=== PATIENT | male | born 1990 | race Caucasian/White ===

== ENCOUNTER 2017-10-18 11:34 | Emergency (ER) | payer OTHER ==
[2017-10-18] MEDS ORDERED: Sodium Chloride 0.9% 1,000 ML IV SCH (12:45)
[2017-10-18 13:32] LABS: BASO % 0.3 % (0.0-2.0); EOS % 0.1 % (0.0-4.0); HEMOGLOBIN 14.5 g/dL (12.0-18.0); LYMPH # 0.6 K/uL (1.0-4.3); MEAN CELL VOLUME 66.7 fl (80.0-94.0); MEAN CORPUSCULAR HEMOGLOBIN 21.7 pg (27.0-31.0); MEAN CORPUSCULAR HGB CONC 32.5 g/dL (33.0-37.0); MEAN PLATELET VOLUME 7.6 fl (7.2-11.7); MONO # 0.7 K/uL (0.0-0.8); NEUT # 12.8 K/uL (1.8-7.0); NEUT % 90.6 % (50.0-75.0); NRBC % 0.1 % (0.0-0.0); PLATELET COUNT 232 K/uL (130-400); RBC 6.67 Mil/uL (4.40-5.90); RED CELL DISTRIBUTION WIDTH 15.6 % (11.5-14.5); WHITE BLOOD COUNT 14.1 K/uL (4.8-10.8)
[2017-10-18 13:48] LABS: ALB/GLOB RATIO 1.4 (1.0-2.1); ALBUMIN 4.9 g/dL (3.5-5.0); CALCIUM 9.4 mg/dL (8.4-10.2); GFR NON-AFRICAN AMERICAN > 60
[2017-10-18 13:52] LABS: ALT/SGPT 33 U/L (21-72); AST/SGOT 35 U/L (17-59); BLOOD UREA NITROGEN 17 mg/dl (9-20)
[2017-10-18 13:59] LABS: EOSINOPHIL 1 % (0-7); LYMPHOCYTE 3 % (20-50); MONOCYTE 5 % (0-10); NEUTROPHIL 91 % (42-75); PLATELET ESTIMATE NORMAL (NORMAL); TOTAL CELLS COUNTED 100
--- NOTE | 2017-10-18 15:17 | ED PDOC ---
HPI: Abdomen Chief Complaint (Provider): "I have vomiting and diarrhea since this morning" History Per: Patient History/Exam Limitations: no limitations Onset/Duration Of Symptoms: Hrs Outside of [place] travel?: No Current Symptoms Are (Timing): Still Present Context: Food Pain Scale Rating Of: 1 Location Of Pain/Discomfort: Diffuse Quality Of Discomfort: Unable To Describe Associated Symptoms: Nausea, Vomiting, Diarrhea. denies: Fever, Chills, Constipation, Urinary Symptoms Exacerbating Factors: None Alleviating Factors: None Last Bowel Movement: Today Additional History Per: Patient <Shahla Michel - Last Filed: 10/18/17 18:22> <Kathie Stoddard - Last Filed: 10/18/17 19:14> Time Seen by Provider: 10/18/17 12:11 Chief Complaint (Nursing): GI Problem Additional Complaint(s): 26 y/o male w/ hx of "gallbladder dyskinesia and vasovagal syncope" presents to the ED w/ c/o non-bloody vomiting x3, non-bloody diarrhea x12 followed by dizziness that began at 2 AM this morning. He denies any alleviating/ aggravating factors. He denies abdominal pain, fever, chest pain, loss of consciousness, headache. He endorses eating Pizza, [employer]ipot[employer], and [place] food last night. He denies recent travel and/or antibiotic use. (Shahla Michel) Supervising Attending Note <Shahla Michel - Last Filed: 10/18/17 18:22> - Supervising Attending Note The Documented history was done by the: Physician Flight Attendant/Inflight Supervisor The documented physical exam was done by the: Physician Flight Attendant/Inflight Supervisor - Attestation: I have personally seen and examined this patient.: Yes I have fully participated in the care of the patient.: Yes I have reviewed all pertinent clinical information: Yes <Kathie Stoddard - Last Filed: 10/18/17 19:14> - Notes: Notes:: Pt with acute vomiting and diarrhea. Labs with leukocytosis otherwise unremarkable. US unremarkable. Tolerating PO in ER. DW pt findings and plan of care. (Kathie Stoddard) Past Medical History Reviewed: Historical Data, Nursing Documentation, Vital Signs - Surgical History Surgical History: No Surg Hx - Family History Family History: States: No Known Family Hx - Social History Current smoker - smoking cessation education provided: No Ex-Smoker (has not smoked in the last 12 months): No Alcohol: None Drugs: Denies <Shahla Michel - Last Filed: 10/18/17 18:22> <RichiKathie Wilfredo - Last Filed: 10/18/17 19:14> Vital Signs: Last Vital Signs Temp 98.9 F 10/18/17 19:09 Pulse 79 10/18/17 19:09 Resp 15 10/18/17 19:09 BP 124/71 10/18/17 19:09 Pulse Ox 99 10/18/17 19:09 - Home Medications Home Medications: Ambulatory Orders Medication Instructions Recorded Dicyclomine [Bentyl] 20 mg PO QID PRN #20 tab 10/18/17 Ondansetron ODT [Zofran ODT] 1 odt PO Q6 PRN #20 odt 10/18/17 - Allergies Allergies/Adverse Reactions: Allergies Allergy/AdvReac Type Severity Reaction Status Date / Time No Known Allergies Allergy Verified 10/18/17 12:04 Review of Systems Constitutional: Negative for: Fever, Chills Eyes: Negative for: Vision Change Cardiovascular: Negative for: Chest Pain, Palpitations Gastrointestinal: Positive for: Nausea, Vomiting, Diarrhea. Negative for: Abdominal Pain, Hematochezia, Hematemesis Genitourinary Male: Negative for: Dysuria, Hematuria Skin: Negative for: Jaundice Neurological: Positive for: Dizziness. Negative for: Weakness, Numbness, Confusion <Shahla Michel - Last Filed: 10/18/17 18:22> Physical Exam - Reviewed Nursing Documentation Reviewed: Yes Vital Signs Reviewed: Yes - Physical Exam Appears: Positive for: No Acute Distress, Uncomfortable Head Exam: Positive for: ATRAUMATIC Skin: Positive for: Warm, Dry. Negative for: Diaphoresis, Pallor Eye Exam: Negative for: Scleral icterus Cardiovascular/Chest: Positive for: Regular Rate, Rhythm. Negative for: Bradycardia, Tachycardia Respiratory: Positive for: Normal Breath Sounds Gastrointestinal/Abdominal: Positive for: Normal Exam, Bowel Sounds, Soft. Negative for: Tenderness, Distended, Guarding, Rebound Back: Negative for: L CVA Tenderness, R CVA Tenderness Extremity: Negative for: Tenderness, Pedal Edema, Calf Tenderness Neurologic/Psych: Positive for: Oriented <Shahla Michel - Last Filed: 10/18/17 18:22> - Laboratory Results Result Diagrams: 10/18/17 13:28 10/18/17 13:28 - ECG O2 Sat by Pulse Oximetry: 100 - Progress Re-evaluation Time: 17:22 (Sx improving. temp 100.6) Condition: Improving,but remains with symptoms <Shahla Michel - Last Filed: 10/18/17 18:22> - Laboratory Results Result Diagrams: 10/18/17 13:28 10/18/17 13:28 <Kathie Stoddard - Last Filed: 10/18/17 19:14> - Progress ED Course And Treament: Assessment: 26 y/o male c/o multiple episodes of vomiting and diarrhea 2/2 gasteroenteritis vs. cholecystits Plan: CBC (wbc 14, neut ct 12.8) CMP wnl IVF hydration 1L NaCl- bolus Zofran 4 mg IVP Loperamide 4 mg PO Abdominal u/s Discussed case w/ attending physician (Shahla Michel) Disposition - Patient ED Disposition Is Patient to be Admitted: No Counseled Patient/Family Regarding: Studies Performed, Diagnosis, Need For Followup, Rx Given - Disposition Disposition: Routine/Home Disposition Time: 18:17 (Patient's sx improved. He was instructed to maintain adequate fluid intake and given Bentyl and Zofran rx for symptoms. Patient also advised to take Acetaminophen for fever control. ) <Shahla Michel - Last Filed: 10/18/17 18:22> <Kathie Stoddard - Last Filed: 10/18/17 19:14> - Clinical Impression Clinical Impression: Gastroenteritis, Fever - Disposition Referrals: [facility]ard [Outside] Condition: IMPROVED Prescriptions: Dicyclomine [Bentyl] 20 mg PO QID PRN #20 tab PRN Reason: abdominal pain Ondansetron ODT [Zofran ODT] 1 odt PO Q6 PRN #20 odt PRN Reason: Nausea/Vomiting Instructions: Viral Gastroenteritis, Adult (DC) Forms: [employer] ([place]), [facility] ED School/Work Excuse
--- NOTE | 2017-10-18 16:49 | US ---
Date of service: 10/18/2017 HISTORY: R/o cholecystitis COMPARISON: None. TECHNIQUE: Sonographic evaluation of the right upper quadrant of the abdomen. FINDINGS: LIVER: Measures 15.0 cm in length. Normal echogenicity of the liver parenchyma. No mass. No intrahepatic bile duct dilatation. GALLBLADDER: Unremarkable. No gallstones. COMMON BILE DUCT: Measures 2.0 mm. No stones. No dilatation. PANCREAS: Pancreas not visualized due to body habitus and bowel gas RIGHT KIDNEY: Measures 8.4 x 4.2 x 4.7 cm in length. Normal echogenicity. No calculus, mass, or hydronephrosis. AORTA: No aneurysmal dilatation. IVC: Unremarkable. OTHER FINDINGS: None . IMPRESSION: Limited study demonstrating no acute abnormality as above
[2017-10-18 17:26] VITALS: RESP 15
[2017-10-18 19:10] VITALS: BP 124/71; PULSE 79; TEMP 98.9; O2SAT 99
== END 2017-10-18 19:10 | disposition home or self-care (01) ==
LOC: H.ER 11:34
DX: K52.9 Noninfective gastroenteritis and colitis, unspecified (principal); R50.9 Fever, unspecified; Z87.891 Personal history of nicotine dependence
CPT/HCPCS: 76705; 80053; 85025; 87045; 96374; 99284; J2405; J7030